=== PATIENT | female | born 1980 | race African-American/Black ===

== ENCOUNTER 2017-03-06 21:36 | Emergency (ER) | payer SELFPAY ==
--- NOTE | ~2017-03-06 | CR172 ---
[facility] A Service of [facility] & [facility] RADIOLOGY TEXT RESULTS PATIENT: NEAL WAKEFIELD LOCATION: CFTX : 84 UNIT #: [id number] AGE: [address]: Malu Valera APRN SEX: F ORDER DR: [id number] [facility] [address] [place], [place] [address] [id number] E MR#: [id number] Acc #: [id number] NAME: NEAL WAKEFIELD : 1980 SEX: F STUDY DATE/TIME: 03/06/2017 22:28 [facility] ROOM: STUDY DESCRIPTION: CR Knee 3 Views Lt Attending Physician: Malu Valera A.P.R.N. Ordering Physician: Malu Valera A.P.R.N. Primary Care Physician: Clau Jhaveri Aprn MEDICAL IMAGING REPORT This report is preliminary unless electronic signature is present EXAM Left knee, 03/06/2017 HISTORY 36-year-old female in the ED complaining of left anterior knee pain beginning 1 day prior. No reported acute injury. TECHNIQUE Three-view left knee series. FINDINGS No fracture, arthropathy or other osseous abnormality is demonstrated. IMPRESSION Negative left knee series. Dictated by... Garth Mckenna M.D. THIS IS AN ELECTRONICALLY VERIFIED REPORT Garth Mckenna M.D. at 03/07/2017 6:04 AM Joe TD: 03/07/2017 05:14 JOB #: [id number] MEDICAL IMAGING REPORT Page 1 of 1 COPY
== END 2017-03-06 23:18 | disposition home or self-care (01) ==
LOC: CFTX 21:36 → CED 21:36 → CFTX 22:21
DX: S83.92XA Sprain of unspecified site of left knee, initial encounter (principal); F17.200 Nicotine dependence, unspecified, uncomplicated; X50.1XXA Overexertion from prolonged static or awkward postures, initial encounter; Y92.009 Unspecified place in unspecified non-institutional (private) residence as the place of occurrence of the external cause
CPT/HCPCS: 29530; 73562; 99283